=== PATIENT | male | born 2000 | race Caucasian/White ===

== ENCOUNTER 2021-04-26 15:54 | Outpatient (CLI) | payer OTHER ==
--- NOTE | 2021-04-26 17:45 | XRAY Report ---
PROCEDURE: Hand 3 View RT INDICATIONS: R HAND PX TECHNIQUE: 3 views of the hand(s) acquired. COMPARISON: None FINDINGS: Bones: No fractures or dislocations. No suspicious bony lesions. Soft tissues: Tiny 1-2 mm densities noted in the soft tissues of the medial hand adjacent to the medi al margin of the fifth MCP joint. IMPRESSION: No fracture. No osseous lesion. If there are persistent symptoms or continued clinical concern for pa thology, then repeat plain film radiographs (7-10 days) or advanced imaging (CT, MR, bone scan) shoul d be considered for further evaluation. Reviewed by: Keily Garcia MD, PhD on 04/26/2021 5:44 PM PDT Approved by: Keily Garcia MD, PhD on 04/26/2021 5:44 PM PDT Station ID: [id number]
== END 2021-04-26 23:59 | disposition home or self-care (01) ==
LOC: DI.N 15:54
PROVIDERS: ATTEND Family Medicine
DX: M79.641 Pain in right hand (principal)